=== PATIENT | female | born 1960 | race Caucasian/White ===

== ENCOUNTER 2022-03-10 08:21 | Emergency (ER) | payer SELFPAY ==
[~2022-03-10] VITALS: Ht 172.7 cm; Wt 81.7 kg
[2022-03-10 10:16] LABS: BASOPHILS ABSOLUTE AUTO 0.03 K/mm3 (0.00-0.23); BASOPHILS PERCENT AUTO 0 % (0-2); EOSINOPHILS PERCENT AUTO 1 % (0-6); Hematocrit 44.4 % (33.0-53.0); Hemoglobin 15.1 g/dL (11.5-17.5); IMMATURE GRAN ABSOLUTE AUTO 0.02 K/mm3 (0.00-0.10); IMMATURE GRAN PERCENT AUTO 0 % (0-1); LYMPHOCYTES ABSOLUTE AUTO 1.79 K/mm3 (0.84-5.20); LYMPHOCYTES PERCENT AUTO 22 % (21-46); MONOCYTES ABSOLUTE AUTO 0.56 K/mm3 (0.16-1.47); MONOCYTES PERCENT AUTO 7 % (4-13); Mean Corpuscular HGB 29.8 pg (26.0-34.0); Mean Corpuscular Volume 88 fL (80-100); Mean Platelet Volume 10.7 fL (9.1-12.4); NEUTROPHILS ABSOLUTE AUTO 5.51 K/mm3 (1.96-9.15); NEUTROPHILS PERCENT AUTO 69 % (41-73); Platelet Count 258 K/mm3 (150-400); RDW Coefficient Variation 12.2 % (11.7-14.2); RDW Standard Deviation 39.1 fL (35.1-46.3); Red Blood Cell Count 5.07 M/mm3 (3.80-5.90); White Blood Cell Count 8.01 K/mm3 (4.00-11.30)
[2022-03-10 11:14] LABS: Alanine Aminotransfer (ALT/SGP 38 U/L (12-78); Albumin, Blood 3.8 g/dL (3.4-5.0); Alk Phos 83 U/L (50-136); Anion Gap 2 mmol/L (6-16); Aspartate Aminotrans (AST/SGOT 41 U/L (12-37); Blood Urea Nitrogen 8 mg/dL (8-24); CO2, Blood 33 mmol/L (21-32); Calcium, Blood 9.2 mg/dL (8.5-10.1); Chloride, Blood 101 mmol/L (98-108); Globulin, Blood 3.8 g/dL (2.2-4.0); Glucose, Blood 110 mg/dL (70-99); Potassium, Blood 5.8 mmol/L (3.5-5.5); Sodium, Blood 136 mmol/L (136-145); Total Protein, Blood 7.6 g/dL (6.4-8.2)
[2022-03-10] MEDS ORDERED: Prednisone50 MG PO (13:30)
[2022-03-10] MEDS ORDERED: ALBU90OI INH (13:30)
== END 2022-03-10 14:22 | disposition home or self-care (01) ==
LOC: EDSEX 08:21 → ER 08:21
PROVIDERS: Emergency Medicine
DX: C32.9 Malignant neoplasm of larynx, unspecified (principal); R49.0 Dysphonia; R06.00 Dyspnea, unspecified; Z88.8 Allergy status to other drugs, medicaments and biological substances
CPT/HCPCS: 36415; 70491; 71046; 80053; 85025; 93005; 93010; 94640; 94664; A9270; J1100; Q9967